=== PATIENT | male | born 1935 | race Caucasian/White ===

== ENCOUNTER 2018-02-09 05:52 | Outpatient (CLI) | payer MEDICARE, OTHER ==
[~2018-02-09] VITALS: Ht 167.6 cm; Wt 83.9 kg
[2018-02-09] VITALS (14 sets, daily range): BP systolic 110–171; BP diastolic 6–82
[~2018-02-09 05:52] MED LIST: EZET1TAB30 PO; PIOG15TA42 PO; TAMS0.4C97 PO
[2018-02-09] MEDS ORDERED: METO-269 PO (06:56)
[2018-02-09] MEDS ORDERED: METO50TA6 PO (06:56)
[2018-02-09] MEDS ORDERED: CITA20TA6 PO (06:56)
[2018-02-09] MEDS ORDERED: ATOR40TA59 PO (06:56)
[2018-02-09] MEDS ORDERED: DILT180C2 PO (06:56)
[2018-02-09] MEDS ORDERED: ASPI325T8 PO (06:56)
[2018-02-09] MEDS ORDERED: OXYC-328 PO (06:56)
[2018-02-09] MEDS ORDERED: LIDOCAINE 1% PF 2 ML VIAL. ONE (07:11)
[2018-02-09] MEDS ORDERED: IODIXANOL 320 MG/ML 100 ML VIAL. ONE (07:11)
[2018-02-09 07:16] LABS: HEMATOCRIT 37.5 % (39.0-53.0); HEMOGLOBIN 12.7 g/dL (13.0-17.5); RED BLOOD COUNT 3.92 x10^6/uL (4.30-5.70); RED CELL DISTRIBUTION WIDTH 15.1 % (11.5-14.5); WHITE BLOOD COUNT 6.9 x10^3/uL (4.0-11.0)
[2018-02-09 07:24] LABS: CALCIUM 9.4 mg/dL (8.5-10.1); CREATININE 1.5 mg/dL (0.7-1.3); GFR 44.7; POTASSIUM 4.7 mmol/L (3.5-5.1)
[2018-02-09 07:37] LABS: PROTHROMBIN TIME PATIENT 14.2 SEC (11.7-14.0)
[2018-02-09] MEDS ORDERED: fentaNYL PF VIAL 100 MCG/2 ML VIAL ONE (08:00)
[2018-02-09] MEDS ORDERED: MIDAZOLAM HCL/PF 2 MG/2 ML VIAL. ONE ×2 (08:00→08:28)
[2018-02-09] MEDS ORDERED: HEPARIN for IV BOLUS 10,000 UNIT/10 ML VIAL. ONE (08:09)
[2018-02-09] MEDS ORDERED: VERAPAMIL 5 MG/2 ML VIAL. ONE ×2 (08:09→09:00)
[2018-02-09] MEDS ORDERED: NITROGLYCERIN 200 MCG/2 ML SYRINGE FOR CATH/VASC LAB. ONE (08:10)
[2018-02-09] MEDS ORDERED: LIDOCAINE 1% Multi-Dose 50 ML VIAL. ONE (08:28)
[2018-02-09] MEDS ORDERED: VERAPAMIL 5 MG/2 ML VIAL. IART ONE (08:30)
[2018-02-09] MEDS ORDERED: fentaNYL PF VIAL 100 MCG/2 ML VIAL IV ONE (08:30)
[2018-02-09] MEDS ORDERED: MIDAZOLAM HCL/PF 2 MG/2 ML VIAL. IV ONE (08:30)
[2018-02-09] MEDS ORDERED: IODIXANOL 320 MG/ML 100 ML VIAL. IART ONE (08:30)
[2018-02-09] MEDS ORDERED: NITROGLYCERIN 200 MCG/2 ML SYRINGE FOR CATH/VASC LAB. IART ONE (08:30)
[2018-02-09] MEDS ORDERED: LIDOCAINE 1% PF 2 ML VIAL. INJ ONE (08:30)
[2018-02-09] MEDS ORDERED: HEPARIN for IV BOLUS 10,000 UNIT/10 ML VIAL. IART ONE (08:30)
[2018-02-09] MEDS ORDERED: LIDOCAINE 1% PF 30 ML VIAL. INJ ONE (08:45)
--- NOTE | 2018-02-09 13:53 | CARD ---
MR#: [id number] Date of Study: 02/09/2018 Ordering Physician: MICHAEL RINCON, Referring Physician: MICHAEL RINCON, Tech: RT Rogelio (R) APPROVED REPORT Technologist: Ruth Rojas RT (R) Nurse: Syeda Epps RN Procedure(s) performed: Moderate sedation: 50 MINUTES LHC, CORONARY ANGIOGRAPHY, AORTOGRAPHY, BYPASS ANGIOGRAPHY HISTORY The patient is a 82 year-old male with a history of : coronary artery disease, tobacco history() , hy pertension, dyslipidemia. INDICATION The indication(s) include : positive stress test. PROCEDURE NARRATIVE CLINICAL INFORMATION: 82-year-old man with a prior history of coronary artery disease status post bypass, history of hematu gabi and anemia with an abnormal stress test who after recovery of his urinary pathology presented to the clinic with persistent fatigue. In light of an abnormal stress test suggestive of a large prior i nfarct with mild felicity-infarct ischemia the risks and benefits of a cardiac catheterization were discu ssed with the patient and he wished to proceed. INFORMED CONSENT: After explaining the risks and benefits of the procedure and alternatives, informed consent was obtai tony. The patient was brought electively to the cardiac catheterization lab in a fasting state. A brielle eout was performed confirming the patient's name, date of , procedure, and site of procedure. A ll necessary personnel were wearing the appropriate protective equipment and radiation monitor device s. (See nursing notes for medications administered). ACCESS: The right groin was sterilely prepped and draped in the usual fashion. The right groin was infiltrat ed with 10 mL of 2% lidocaine for subcutaneous anesthesia. A 6 F sheath was inserted into the right femoral artery without difficulty. Of note, there was tortuosity in the iliac vessels that required a glidewire for navigation. Right and left coronary angiography was performed using a JR4 and JL4 catheter. Bypass angiography w as performed with a JR4 and CHRISTENSEN catheter. Left ventricular end diastolic pressure was obtained with a pigtail catheter and pullback was performed. Due to significant iliac tortuousity, an aortogram wa s performed to rule out aneurysm. All catheter exchanges and advancements were performed over a guide wire. At case completion the right femoral sheath was removed and hemostasis was achieved with an An gioseal Device after limited femoral angiography confirmed adequate vessel size and anatomy. There w ere no acute complications. HEMODYNAMICS: AO: 165/80 LVEDP 21 mm Hg No gradient on LV to aortic pullback. LEFT VENTRICULOGRAM: Deferred due to CKD and known EF of 45% from stress testing. CORONARY ANGIOGRAPHY: LM is a large caliber vessel with normal angiographic appearance. LAD is a large caliber vessel with proximal 100% occlusion. The mid to distal vessel is small in behzad tommie and has mild diffuse disease and is seen to fill via patent BLUE graft. Ramus is a moderate caliber vessel with a 100% occlusion proximally. The mid to distal vessel has no significant disease and seen to fill via a patent vein graft. LCx is a moderate caliber co-dominant vessel with a proximal 70% stenosis followed by a mid 60% steno sis. The distal vessel fills via antegrade [place] flow and via a patent vein graft to the LPL1 OM1 is a small caliber vessel with mild diffuse disease. OM2 is a moderate caliber vessel with normal angiographic appearance. LPL1 is a small caliber vessel with mild diffuse disease of up to 20%. The vessel fills mostly via a patent vein graft. RCA is a moderate caliber dominant vessel with a proximal focal napkin ring calcified 70% stenosis fo llowed by a mid 40% stenosis. RPDA is a small caliber vesel with normal angiographic appearance. BYPASS ANGIOGRAPHY: SVG to LPL1- widely patent without anastomotic stenosis SVG to ramus- widely patent without anastomotic stenosis. CHRISTENSEN to LAD - Widely patent without anastomotic stenosis. AORTOGRAPHY: Mild diffuse ectatic aorta without focal stenosis. Conclusion 1. Mildly elevated LVEDP 2. Three vessel coronary disease. 3. 3/4 grafts patent. (presumed as patient reported 4 grafts but only three were found, possible occl usion of SVG to RCA or SVG to OM2) Recommendations 1. If patient has worsening pain, could then consider PCI with rotational atherectomy of the RCA. Due to age, CKD, lack of clear anginal pain in the setting of low ischemic burden, medical management wa s advised. 2. Aggressive medical therapy Signed by : Michael Rincon, Electronically Approved : 02/09/2018 13:51:26
== END 2018-02-09 12:46 | disposition home or self-care (01) ==
LOC: CCL 05:52
PROVIDERS: ATTEND Internal Medicine Cardiovascular Disease
DX: I25.10 Atherosclerotic heart disease of native coronary artery without angina pectoris (principal); I77.819 Aortic ectasia, unspecified site; J44.9 Chronic obstructive pulmonary disease, unspecified; I25.2 Old myocardial infarction; I13.0 Hypertensive heart and chronic kidney disease with heart failure and stage 1 through stage 4 chronic kidney disease, or unspecified chronic kidney disease; E11.22 Type 2 diabetes mellitus with diabetic chronic kidney disease; N18.3 Chronic kidney disease, stage 3 (moderate); I50.9 Heart failure, unspecified; F41.9 Anxiety disorder, unspecified; G93.40 Encephalopathy, unspecified; K21.9 Gastro-esophageal reflux disease without esophagitis; E78.5 Hyperlipidemia, unspecified; F32.9 Major depressive disorder, single episode, unspecified; E66.9 Obesity, unspecified; I48.91 Unspecified atrial fibrillation; Z95.1 Presence of aortocoronary bypass graft; Z86.73 Personal history of transient ischemic attack (TIA), and cerebral infarction without residual deficits; Z98.890 Other specified postprocedural states; Z79.899 Other long term (current) drug therapy; Z79.82 Long term (current) use of aspirin; Z87.891 Personal history of nicotine dependence; Z90.49 Acquired absence of other specified parts of digestive tract; Z88.8 Allergy status to other drugs, medicaments and biological substances; Z93.3 Colostomy status; Z99.81 Dependence on supplemental oxygen
CPT/HCPCS: 36415; 80048; 85027; 85610; 93459; 93567; 99152; 99153; C1769; C1771; C1892; G0269; J1644; J2250; J3010

== ENCOUNTER → 2018-11-22 | Outpatient (CLI) | payer MEDICARE, OTHER ==
[2018-02-09 12:30] VITALS: BP 132/62
[~2018-11-22] MED LIST changes: +ASPI325T8 PO; +ATOR40TA59 PO; +CITA20TA6 PO; +DILT180C2 PO; +METO-269 PO; +METO50TA6 PO; +OXYC1TAB22 PO
--- NOTE | 2018-11-22 13:10 | CARD ---
MR#: [id number] Date of Study: 11/22/2018 Ordering Physician: MICHAEL OBREGON, Referring Physician: MICHAEL OBREGON, Tech: Maricarmen Rojas MARA APPROVED REPORT EXAM: Two-dimensional and M-mode echocardiogram with Doppler and color Doppler. Other Information Quality : Fair INDICATION Peripheral Edema 2D DIMENSIONS RVDd3.4 (2.9-3.5cm)Left Atrium(2D)4.7 (1.6-4.0cm) IVSd0.8 (0.7-1.1cm)Aortic Root(2D)2.3 (2.0-3.7cm) LVDd6.4 (3.9-5.9cm)LVOT Diameter2.1 (1.8-2.4cm) PWd0.8 (0.7-1.1cm)LVDs5.2 (2.5-4.0cm) FS (%) 19.2 %SV81.6 ml Aortic Valve AoV Peak Matthew.204.1cm/sAoV VTI43.5cm AO Peak GR.16.7mmHgLVOT Peak Matthew.122.7cm/s LVOT VTI 28.71cmAO Mean GR.10mmHg TERESA (VMAX)2.77nd1ABS (VTI)2.32cm2 Mitral Valve MV E Wjixlhbs30.6cm/sMV DECEL SRLE143lp MV A Kgesdowh57.3cm/sMV ZHL69wv E/A Ratio1.1MVA (PHT)3.05cm2 TDI E/Lateral E'11.9E/Medial E'16.0 Tricuspid Valve TR P. Fvbtdeej747pd/sRAP UYOYZQWP5kyGk TR Peak Gr.99svFtAMWC09anBr Pulmonary Vein S1 Vzfhrmjn13.9cm/sD2 Obhirpgl99.1cm/s LEFT VENTRICLE Technically difficult study. The left ventricle is normal size. There is borderline concentric left v entricular hypertrophy. Left ventricle systolic function is low normal to mildly decreased. Left vent ricular ejection fraction at 45-50%. Septal motion consistent with conduction abnormality. Transmitra l Doppler flow pattern is Grade II-pseudonormal filling dynamics. RIGHT VENTRICLE The right ventricle is normal size. The right ventricular systolic function is normal. ATRIA The left atrium is mildly dilated. The right atrium size is normal. The interatrial septum is intact with no evidence for an atrial septal defect or patent foramen ovale as noted on 2-D or Doppler imagi ng. AORTIC VALVE The aortic valve is calcified but opens well. Doppler and Color Flow revealed no significant aortic r egurgitation. There is no significant aortic valvular stenosis. MITRAL VALVE The mitral valve is calcified but opens well. There is no evidence of mitral valve prolapse. There is no mitral valve stenosis. Doppler and Color-flow revealed trace mitral regurgitation. TRICUSPID VALVE The tricuspid valve is normal in structure and function. Doppler and Color Flow revealed trace tricus pid regurgitation. The PA pressure was estimated at 31 mmHg. There is no tricuspid valve stenosis. PULMONIC VALVE The pulmonic valve is not well visualized. Doppler and Color Flow revealed trace to mild pulmonic laisha vular regurgitation. There is no pulmonic valvular stenosis. GREAT VESSELS The aortic root is normal in size. The ascending aorta is mildly dilated at 3.5 cm. The IVC is normal in size and collapses >50% with inspiration. PERICARDIAL EFFUSION There is no evidence of significant pericardial effusion. Critical Notification Critical Value: No <Conclusion> Technically difficult study. The left ventricle is normal size. Left ventricle systolic function is low normal to mildly decreased. Left ventricular ejection fraction at 45-50%. There is borderline concentric left ventricular hypertrophy. There is no significant aortic valvular stenosis. Doppler and Color Flow revealed no significant aortic regurgitation. Doppler and Color-flow revealed trace mitral regurgitation. Doppler and Color Flow revealed trace tricuspid regurgitation. The PA pressure was estimated at 31 mmHg. Signed by : Herminio Awad MD Electronically Approved : 11/22/2018 13:09:49
== END | disposition home or self-care (01) ==
LOC: ECHO 09:34
PROVIDERS: ATTEND Internal Medicine Cardiovascular Disease
DX: I08.8 Other rheumatic multiple valve diseases (principal)
CPT/HCPCS: 93306

== ENCOUNTER → 2019-11-22 | Outpatient (CLI) | payer MEDICARE, OTHER ==
[2018-02-09 12:30] VITALS: BP 132/62
--- NOTE | 2019-11-22 11:14 | CARD ---
MR#: [id number] Date of Study: 11/22/2019 Ordering Physician: MICHAEL OBREGON, Referring Physician: MICHAEL OBREGON, Tech: Jody Chang APPROVED REPORT EXAM: Two-dimensional and M-mode echocardiogram with Doppler and color Doppler. Other Information Quality : AverageHR: 63bpm INDICATION Cardiac Disease: CAD RISK FACTORS Hyperlipidemia Smoking 2D DIMENSIONS RVDd3.1 (2.9-3.5cm)Left Atrium(2D)3.7 (1.6-4.0cm) IVSd1.4 (0.7-1.1cm)Aortic Root(2D)3.8 (2.0-3.7cm) LVDd5.6 (3.9-5.9cm)LVOT Diameter2.1 (1.8-2.4cm) PWd1.2 (0.7-1.1cm)LVDs3.5 (2.5-4.0cm) FS (%) 37.7 %SV101.4 ml LVEF(%)67.1 (>50%) Aortic Valve AoV Peak Matthew.239.2cm/sAoV VTI54.0cm AO Peak GR.22.9mmHgLVOT Peak Matthew.138.1cm/s LVOT VTI 29.30cmAO Mean GR.14mmHg TERESA (VMAX)1.73tg7ODZ (VTI)1.91cm2 Mitral Valve MV E Rnpijlhn14.7cm/sMV DECEL JRRS690hj MV A Irnvyufg98.7cm/sMV E Mean Gr.2mmHg MV WYO22caF/A Ratio1.2 MVA (PHT)3.74cm2 TDI E/Lateral E'11.1E/Medial E'14.5 Pulmonary Valve PV Peak Gkjizyhw713.9cm/sPV Peak Grad.5mmHg Tricuspid Valve TR P. Ubkaxuok785rw/sRAP JWZLWFHF4nbBg TR Peak Gr.96ezBiHPAT41hzMj Pulmonary Vein S1 Esptadyi98.0cm/sD2 Sfcntitm81.4cm/s LEFT VENTRICLE The left ventricle is normal size. There is mild concentric left ventricular hypertrophy. The left ve ntricular systolic function is normal. The Ejection Fraction is 50-55%. Septal motion consistent with conduction abnormality. Transmitral Doppler flow pattern is Grade II-pseudonormal filling dynamics. RIGHT VENTRICLE The right ventricle is normal size. There is normal right ventricular wall thickness. The right ventr icular systolic function is normal. ATRIA The left atrium is borderline dilated. The right atrium size is normal. The interatrial septum is int act with no evidence for an atrial septal defect or patent foramen ovale as noted on 2-D or Doppler i maging. AORTIC VALVE The aortic valve is thickened but opens well. Doppler and Color Flow revealed trace aortic regurgitat ion. Mild aortic stenosis. MITRAL VALVE The mitral valve is normal in structure and function. There is no evidence of mitral valve prolapse. There is no mitral valve stenosis. Doppler and Color-flow revealed trace mitral regurgitation. TRICUSPID VALVE The tricuspid valve is normal in structure and function. Doppler and Color Flow revealed trace tricus pid regurgitation with an estimated PAP of 39 mmHg. There is no tricuspid valve stenosis. PULMONIC VALVE The pulmonic valve is not well visualized. Doppler and Color Flow revealed trace pulmonic valvular re gurgitation. GREAT VESSELS The aortic root is normal in size. The IVC is normal in size and collapses >50% with inspiration. PERICARDIAL EFFUSION There is no evidence of significant pericardial effusion. Critical Notification Critical Value: No <Conclusion> The left ventricular systolic function is normal. The Ejection Fraction is 50-55%. Mild aortic stenosis. Trace mitral regurgitation. Trace tricuspid regurgitation with an estimated PAP of 39 mmHg. There is no evidence of significant pericardial effusion. Signed by : Roberto Bejarano, Electronically Approved : 11/22/2019 11:13:51
== END | disposition home or self-care (01) ==
LOC: ECHO 09:28
PROVIDERS: ATTEND Internal Medicine Cardiovascular Disease
DX: I35.0 Nonrheumatic aortic (valve) stenosis (principal); I25.10 Atherosclerotic heart disease of native coronary artery without angina pectoris
CPT/HCPCS: 93306

== ENCOUNTER → 2021-03-09 | Outpatient (CLI) | payer MEDICARE, OTHER ==
[2018-02-09 12:30] VITALS: BP 132/62
--- NOTE | 2021-03-10 10:35 | CARD ---
MR#: [id number] Date of Study: 03/09/2021 Ordering Physician: MICHAEL OBREGON, Referring Physician: MICHAEL OBREGON, Tech: APPROVED REPORT EXAM Loop Recorder Indication: Atrial fibrillation After appropriate informed consent the left chest was prepped and draped in usual sterile fashion. U nder 1% lidocaine local anesthesia a 0.25 inch incision was made in the left parasternal space. A garcia bcutaneous tunnel was created and a [employer] reveal LINQ loop recorder with serial number [id number] was implanted. Appropriate amplitudes and signals were noted at 0.47. The incision was then close d with Steri-Strips. No acute complications noted. CONCLUSION 1. Successful implantation of a [employer] loop recorder for monitoring of atrial fibrillation. Signed by : Michael Obregon, Electronically Approved : 03/10/2021 10:35:21
== END | disposition home or self-care (01) ==
LOC: LINQ 10:55
PROVIDERS: ATTEND Internal Medicine Cardiovascular Disease
DX: I48.91 Unspecified atrial fibrillation (principal); I11.0 Hypertensive heart disease with heart failure; I50.9 Heart failure, unspecified; I25.10 Atherosclerotic heart disease of native coronary artery without angina pectoris; J44.9 Chronic obstructive pulmonary disease, unspecified; N40.0 Benign prostatic hyperplasia without lower urinary tract symptoms; E11.9 Type 2 diabetes mellitus without complications; G47.30 Sleep apnea, unspecified; F41.9 Anxiety disorder, unspecified; F32.9 Major depressive disorder, single episode, unspecified; F17.210 Nicotine dependence, cigarettes, uncomplicated; Z79.82 Long term (current) use of aspirin; Z79.84 Long term (current) use of oral hypoglycemic drugs; Z79.899 Other long term (current) drug therapy; Z98.890 Other specified postprocedural states; Z87.440 Personal history of urinary (tract) infections; Z88.6 Allergy status to analgesic agent; Z88.8 Allergy status to other drugs, medicaments and biological substances
CPT/HCPCS: 33285; C1764

== ENCOUNTER 2021-06-18 09:02 | Outpatient (CLI) | payer MEDICARE, OTHER ==
[~2021-06-18] VITALS: Ht 175.3 cm; Wt 72.7 kg
[2021-06-18] VITALS (12 sets, daily range): BP systolic 79–125; BP diastolic 45–80
[2021-06-18] MEDS ORDERED: LIDOCAINE 1% Multi-Dose 20 ML VIAL. ONE (09:07)
[2021-06-18] MEDS ORDERED: IODIXANOL 320 MG/ML 100 ML VIAL. ONE (09:08)
[2021-06-18] MEDS ORDERED: HEPARIN for ARTERIAL LINE 1,500 ML ONE (09:08)
[2021-06-18] MEDS ORDERED: APIX5TAB PO (09:30)
[2021-06-18] MEDS ORDERED: FURO40TA4 PO (09:30)
[2021-06-18] MEDS ORDERED: PREG-9 PO (09:30)
[2021-06-18] MEDS ORDERED: [UNRECOGNIZED DRUG - REMARK] PO (09:30)
[2021-06-18] MEDS ORDERED: MULT-766 PO (09:30)
[2021-06-18 09:35] LABS: HEMATOCRIT 37.3 % (39.0-53.0); HEMOGLOBIN 11.9 g/dL (13.0-17.5); RED BLOOD COUNT 4.08 x10^6/uL (4.30-5.70); RED CELL DISTRIBUTION WIDTH 16.5 % (11.5-14.5); WHITE BLOOD COUNT 9.1 x10^3/uL (4.0-11.0)
[2021-06-18] MEDS ORDERED: ALBUTEROL SULFATE 2.5 MG/3 ML NEBU. NEB ONE (09:45)
[2021-06-18 09:49] LABS: CALCIUM 9.2 mg/dL (8.5-10.1); CREATININE 1.3 mg/dL (0.7-1.3); GFR 52.2; POTASSIUM 5.6 mmol/L (3.5-5.1)
--- NOTE | 2021-06-18 09:53 | NUR ---
Patient arrived, placed on monitor-- SpO2 89-92% on RA. Wheezing, very tight upon auscultation. Patient's states he is on 2L NC at home periodically and refuses to use prescribed inhalers for COPD. Retracting, labored breathing noted. RT paged. Breathing treatment administered. SpO2 95% on 2L. SOA improved. RN aware, taken to [facility] for [facility].
[2021-06-18] MEDS ORDERED: HEPARIN for IV BOLUS 10,000 UNIT/10 ML VIAL. ONE (09:55)
[2021-06-18] MEDS ORDERED: MIDAZOLAM HCL/PF 2 MG/2 ML VIAL. ONE (09:55)
[2021-06-18] MEDS ORDERED: VERAPAMIL 5 MG/2 ML VIAL. ONE (09:55)
[2021-06-18] MEDS ORDERED: NITROGLYCERIN 200 MCG/2 ML SYRINGE FOR CATH/VASC LAB. ONE (09:56)
[2021-06-18] MEDS ORDERED: fentaNYL PF VIAL 100 MCG/2 ML VIAL ONE (09:56)
[2021-06-18] MEDS ORDERED: IV NORMAL SALINE 500ML BAG 500 ML IV ONE (10:30)
[2021-06-18] MEDS ORDERED: MIDAZOLAM HCL/PF 2 MG/2 ML VIAL. IV ONE (10:30)
[2021-06-18] MEDS ORDERED: LIDOCAINE 1% Multi-Dose 20 ML VIAL. INJ ONE (10:30)
[2021-06-18] MEDS ORDERED: HEPARIN for IV BOLUS 10,000 UNIT/10 ML VIAL. IART ONE (10:30)
[2021-06-18] MEDS ORDERED: VERAPAMIL 5 MG/2 ML VIAL. IART ONE (10:30)
[2021-06-18] MEDS ORDERED: NITROGLYCERIN 200 MCG/2 ML SYRINGE FOR CATH/VASC LAB. IART ONE (10:30)
[2021-06-18] MEDS ORDERED: IODIXANOL 320 MG/ML 100 ML VIAL. IART ONE (10:30)
[2021-06-18] MEDS ORDERED: fentaNYL PF VIAL 100 MCG/2 ML VIAL IV ONE (10:30)
[2021-06-18] MEDS ORDERED: CONTRAST GIVEN. MC PRN (10:45)
--- NOTE | 2021-06-18 13:48 | NUR ---
discharge instructions reviewed with pt and family. TR band removed and arm board reapplied. pt ambulated and tolerated PO
--- NOTE | 2021-06-22 18:13 | CARD ---
MR#: [id number] Date of Study: 06/18/2021 Ordering Physician: MICHAEL RINCON, Referring Physician: MICHAEL RINCON, Tech: RT Charis(R) APPROVED REPORT Technologist: Candice Cowan RT(R) Nurse: Sammie Alejandra RN Procedure(s) performed: MODERATE SEDATION TIME: 43 MINUTES FLUORO TIME: 8.6 MIN DOSE: 61.5 GYCM2 CONTRAST: 86CC VISI LHC, Coronary angiography, Bypass angiography INDICATION The indication(s) include : unstable angina , dyspnea. [facility] Clinical Frailty Scale [facility] Clinical Frailty Scale: Moderately Frail Heart Failure Heart Failure: Yes If Yes, Newly Diagnosed: No If Yes, HF Type: Diastolic If Yes, NYHA Class: Class II CASE TECHNIQUE IV conscious sedation was used throughout procedure with appropriate monitoring and was performed in the presence of a registered nurse who was an independent trained observer other than the physician p erforming the procedure. During this case, Fluoroscopy and low osmolar contrast were used for imaging . Specimen(s) Removed: N/A Estimated Blood loss: 15 cc's. PROCEDURE NARRATIVE Clinical information: 86-year-old man with progressive dyspnea who presents to the catheterization laboratory for further e valuation. He has a history of prior bypass surgery and severe COPD. Procedure details: After proper informed consent the left wrist was prepped and draped in usual sterile fashion. Under 1% lidocaine local anesthesia a 6 [place] sheath was placed in the left radial artery. Diagnostic ang iography was then performed with a 6 [place] JR4, BLUE, JL4 and LCB catheters. At case completion the catheters and wires were removed and hemostasis was achieved via manual compression. No acute complications. Findings: Aorta 140/80 LVEDP 9 mmHg No LV to aortic pullback gradient Coronary angiography: Left main is a large-caliber vessel with mild luminal irregularities LAD has a proximal 100% occlusion. The distal vessel has moderate diffuse disease and this seemed to fill via patent BLUE graft D1 is a small caliber vessel and is proximally occluded in the distal vessel is seen to fill via a ve in graft. Left circumflex is a moderate caliber codominant vessel with a proximal eccentric Scott calcific 70% st enosis. OM1 is a moderate caliber vessel with a patent proximal stent with 50% in-stent restenosis LPL 1 is a small caliber vessel with a proximal subtotal occlusion. The distal vessel seen to fill v ia a vein graft. RCA is a large caliber dominant vessel with a proximal 80% calcified stenosis. Bypass angiography: CHRISTENSEN to the LAD is widely patent without anastomotic stenosis SVG to D1/high ramus is widely patent without anastomotic stenosis SVG to LPL 1 is widely patent without anastomotic stenosis Conclusion 1. Normal left-sided filling pressures 2. Severe [place] three-vessel coronary artery disease 3. Patent stents in the left circumflex 4. 3 of 3 bypass grafts patent Recommendations 1. At this present time the patient has progressive coronary disease specifically in the proximal ri ght coronary artery and left circumflex artery. Currently the patient also seems to have significant wheezing and part of his dyspnea appears to be related to lung disease. Given that he has no signif icant acute coronary syndrome we would favor medical therapy and optimization of his lung status and then consider high risk rotational atherectomy and PCI of the proximal circumflex and RCA as indicate d depending on his symptoms. Signed by : Michael Rincon, Electronically Approved : 06/22/2021 18:13:13
== END 2021-06-18 13:52 | disposition home or self-care (01) ==
LOC: CCL 09:02
PROVIDERS: ATTEND Internal Medicine Cardiovascular Disease
DX: I25.110 Atherosclerotic heart disease of native coronary artery with unstable angina pectoris (principal); R06.09 Other forms of dyspnea; J44.9 Chronic obstructive pulmonary disease, unspecified; I11.0 Hypertensive heart disease with heart failure; I50.9 Heart failure, unspecified; I48.91 Unspecified atrial fibrillation; E11.9 Type 2 diabetes mellitus without complications; N40.0 Benign prostatic hyperplasia without lower urinary tract symptoms; G47.30 Sleep apnea, unspecified; F41.9 Anxiety disorder, unspecified; F32.9 Major depressive disorder, single episode, unspecified; Z87.440 Personal history of urinary (tract) infections; Z87.891 Personal history of nicotine dependence; Z79.899 Other long term (current) drug therapy; Z98.890 Other specified postprocedural states; Z88.6 Allergy status to analgesic agent; Z88.8 Allergy status to other drugs, medicaments and biological substances
CPT/HCPCS: 36415; 80048; 85027; 85610; 93459; 94640; 99152; 99153; C1769; C1894; J1644; J2250; J3010; J3490; J7040; J7613; Q9967